=== PATIENT | male | born 1970 | race Hispanic/Latino ===

== ENCOUNTER 2023-06-30 07:47 | Observation (INO) | payer MEDICAID ==
[~2023-06-30] VITALS: Ht 167.6 cm; Wt 67.4 kg
[2023-06-30] MEDS ORDERED: LACTATED RINGERS 1000ML 1,000 ML IV ONE ×2 (08:30)
[2023-06-30 08:39] LABS: BASOPHILS # (AUTO) 0.04 K/uL (0.00-0.20); BASOPHILS % (AUTO) 0.5 % (0.0-5.0); EOSINOPHILS # (AUTO) 0.11 K/uL (0.00-0.70); EOSINOPHILS % (AUTO) 1.5 % (0.0-8.0); HEMATOCRIT 38.2 % (42-54); IMMATURE GRANULOCYTE ABSOLUTE 0.03 K/uL (0-1); LYMPHOCYTES # (AUTO) 0.8 K/uL (1.0-4.8); LYMPHOCYTES % (AUTO) 10.4 % (21.0-51.0); MEAN CORPUSCULAR HGB CONC 35.1 g/dL (32.0-36.0); MEAN CORPUSCULAR VOLUME 94.1 fL (79-99); MONOCYTES # (AUTO) 0.4 K/uL (0.1-1.0); MONOCYTES % (AUTO) 5.4 % (3.0-13.0); NEUTROPHILS # (AUTO) 6.2 K/uL (1.8-7.7); NEUTROPHILS % (AUTO) 81.8 % (40.0-77.0); PLATELET COUNT (AUTO) 204 K/uL (130-400); RED BLOOD CELL COUNT(AUTO) 4.06 MIL/uL (4.50-6.20); RED CELL DISTRIBUTION WIDTH 12.5 % (11.0-15.5); WHITE BLOOD COUNT (AUTO) 7.6 K/uL (4.8-10.8)
[2023-06-30 08:47] LABS: CARBON DIOXIDE 28 mmol/L (21-32); CHLORIDE 99 mmol/L (101-111); CREATININE 2.4 mg/dL (0.5-1.5); GLOMERULAR FILTR. RATE CALC 31 mL/min (>90); GLUCOSE,RANDOM 103 mg/dL (70-105); POTASSIUM 4.7 mmol/L (3.5-5.1); SODIUM SERUM 135 mmol/L (136-145); UREA NITROGEN, BLOOD 16 mg/dL (7-18)
[2023-06-30 08:54] LABS: ALANINE AMINOTRANSFERASE 17 U/L (12-78); ALBUMIN 3.5 g/dL (3.5-5.0); ALCOHOL, BLOOD < 3 mg/dL (0-10); ASPARTATE AMINOTRANSFERASE 31 U/L (10-37); BILIRUBIN,TOTAL 0.6 mg/dL (0.2-1.0); TOTAL PROTEIN, SERUM 7.8 g/dL (6.0-8.3)
[2023-06-30 09:15] LABS: INR 0.95 (0.85-1.15); PROTHROMBIN TIME 11.1 SEC (9.6-11.6)
[2023-06-30 09:16] LABS: PARTIAL THROMBOPLASTIN TIME 29.6 SEC (26.3-35.5)
[2023-06-30 10:58] LABS: AMPHET/METH SCREEN,URINE NEGATIVE (NEGATIVE); BARBITURATE SCREEN, URINE NEGATIVE (NEGATIVE); BENZODIAZEPINES SCREEN,URINE NEGATIVE (NEGATIVE); CANNABINOID SCREEN,URINE NEGATIVE (NEGATIVE); COCAINE SCREEN,URINE NEGATIVE (NEGATIVE); OPIATE SCREEN,URINE NEGATIVE (NEGATIVE); PHENCYCLIDINE SCREEN,URINE NEGATIVE (NEGATIVE)
[2023-06-30] MEDS ORDERED: LORAZEPAM 2 MG/ML 1 ML VIAL IVP PRN (13:00)
[2023-06-30] MEDS ORDERED: LEVETIRACETAM 250 MG TABLET PO SCH (21:00)
[2023-06-30] MEDS: LEVETIRACETAM 500 MG TABLET PO SCH (21:19)
[2023-06-30 22:05] VITALS: BP 158/94; PULSE 71; RESP 20
[2023-06-30] MEDS ORDERED: LOSA100T59 PO (22:24)
[2023-06-30] MEDS ORDERED: AMLO-258 PO (22:24)
[2023-06-30] MEDS ORDERED: LISI10TA24 PO (22:24)
[2023-06-30] MEDS ORDERED: CARV12.511 PO (22:24)
[2023-06-30] MEDS ORDERED: ATOR-2 PO (22:24)
[2023-06-30] MEDS ORDERED: ASPI-1443 PO (22:24)
[2023-06-30] MEDS ORDERED: LEVE750T10 PO (22:24)
[2023-06-30] MEDS ORDERED: HYDR25TA PO (22:24)
[2023-07-01] VITALS (7 sets, daily range): BP systolic 113–156; BP diastolic 66–84; PULSE 54–72; RESP 16–20; O2SAT 98
[2023-07-01 05:22] LABS: BASOPHILS # (AUTO) 0.05 K/uL (0.00-0.20); BASOPHILS % (AUTO) 0.9 % (0.0-5.0); EOSINOPHILS # (AUTO) 0.22 K/uL (0.00-0.70); EOSINOPHILS % (AUTO) 3.9 % (0.0-8.0); HEMATOCRIT 40.1 % (42-54); IMMATURE GRANULOCYTE ABSOLUTE 0.03 K/uL (0-1); LYMPHOCYTES # (AUTO) 1.4 K/uL (1.0-4.8); LYMPHOCYTES % (AUTO) 25.8 % (21.0-51.0); MEAN CORPUSCULAR HEMOGLOBIN 32.2 pg (27.0-33.0); MEAN CORPUSCULAR HGB CONC 34.4 g/dL (32.0-36.0); MEAN CORPUSCULAR VOLUME 93.5 fL (79-99); MONOCYTES # (AUTO) 0.5 K/uL (0.1-1.0); MONOCYTES % (AUTO) 9.7 % (3.0-13.0); NEUTROPHILS # (AUTO) 3.3 K/uL (1.8-7.7); NEUTROPHILS % (AUTO) 59.2 % (40.0-77.0); PLATELET COUNT (AUTO) 230 K/uL (130-400); RED BLOOD CELL COUNT(AUTO) 4.29 MIL/uL (4.50-6.20); RED CELL DISTRIBUTION WIDTH 12.5 % (11.0-15.5); WHITE BLOOD COUNT (AUTO) 5.6 K/uL (4.8-10.8)
[2023-07-01 05:44] LABS: ALBUMIN 3.4 g/dL (3.5-5.0); BILIRUBIN,TOTAL 0.7 mg/dL (0.2-1.0); CREATININE 1.9 mg/dL (0.5-1.5); MAGNESIUM 1.6 mg/dL (1.80-2.40); POTASSIUM 3.7 mmol/L (3.5-5.1); TOTAL PROTEIN, SERUM 7.7 g/dL (6.0-8.3)
[2023-07-01] MEDS: MAGNESIUM 2GM PREMIX 50ML 50 ML IV PRN (07:12)
[2023-07-01] MEDS: THIAMINE HCL 100 MG TABLET PO SCH (08:36)
[2023-07-01] MEDS: FOLIC ACID 1 MG TABLET PO SCH (08:36)
[2023-07-01] MEDS: LEVETIRACETAM 500 MG TABLET PO SCH ×2 (08:36→20:08)
[2023-07-01] MEDS ORDERED: LEVETIRACETAM 1,000 MG in 0.9%NACL 100ML 100 ML IV SCH (09:00)
[2023-07-02 03:00] VITALS: BP 142/76; PULSE 63; RESP 18
[2023-07-02 05:16] LABS: HEMATOCRIT 41.2 % (42-54); MEAN CORPUSCULAR HEMOGLOBIN 32.3 pg (27.0-33.0); MEAN CORPUSCULAR VOLUME 95.2 fL (79-99); RED BLOOD CELL COUNT(AUTO) 4.33 MIL/uL (4.50-6.20); RED CELL DISTRIBUTION WIDTH 12.4 % (11.0-15.5); WHITE BLOOD COUNT (AUTO) 5.9 K/uL (4.8-10.8)
[2023-07-02 05:29] LABS: CREATININE 1.8 mg/dL (0.5-1.5); MAGNESIUM 1.8 mg/dL (1.80-2.40); POTASSIUM 3.5 mmol/L (3.5-5.1)
[2023-07-02] MEDS: MAGNESIUM 2GM PREMIX 50ML 50 ML IV PRN (05:56)
[2023-07-02 07:20] VITALS: O2SAT 97
[2023-07-02 08:00] VITALS: BP 126/67; PULSE 61; RESP 18
[2023-07-02] MEDS: THIAMINE HCL 100 MG TABLET PO SCH (08:53)
[2023-07-02] MEDS: LEVETIRACETAM 500 MG TABLET PO SCH (08:53)
[2023-07-02] MEDS: FOLIC ACID 1 MG TABLET PO SCH (08:53)
[2023-07-02 11:00] VITALS: BP 156/86; PULSE 63; RESP 16
[2023-07-02 16:00] VITALS: BP 147/80; PULSE 62; RESP 16
== END 2023-07-02 18:00 | disposition home or self-care (01) ==
LOC: EDH 07:47 → EDHIP 07:48 → 3CH 21:22
PROVIDERS: ADMIT Internal Medicine Infectious Disease; ATTEND Internal Medicine Infectious Disease
DX: G40.911 Epilepsy, unspecified, intractable, with status epilepticus (principal); S00.83XA Contusion of other part of head, initial encounter; I12.9 Hypertensive chronic kidney disease with stage 1 through stage 4 chronic kidney disease, or unspecified chronic kidney disease; E11.22 Type 2 diabetes mellitus with diabetic chronic kidney disease; N18.9 Chronic kidney disease, unspecified; E78.00 Pure hypercholesterolemia, unspecified; F10.129 Alcohol abuse with intoxication, unspecified; M10.9 Gout, unspecified; E78.5 Hyperlipidemia, unspecified; M47.812 Spondylosis without myelopathy or radiculopathy, cervical region; X58.XXXA Exposure to other specified factors, initial encounter; Y93.89 Activity, other specified; Y92.89 Other specified places as the place of occurrence of the external cause; Z91.199 Patient's noncompliance with other medical treatment and regimen due to unspecified reason; Z86.73 Personal history of transient ischemic attack (TIA), and cerebral infarction without residual deficits; Z79.899 Other long term (current) drug therapy
CPT/HCPCS: 96361; 96365; 99285; 80053 ×2; 80305; 83690; 85025 ×2; 85610; 85730; 36415 ×3; 71045; 70450; 72125; 70486; 93005; 80177; 96375; 83735 ×2; 70551; 96376; 80048; 85027; G0378 ×52; J3475 ×2; J1953

== ENCOUNTER 2024-11-29 19:35 | Emergency (ER) | payer MEDICAID ==
[~2024-11-29 19:35] MED LIST: AMLO-257 PO; ATOR-2 PO; CARV12.511 PO; FAMO-290 PO; LEVE750T4 PO; LOSA100T59 PO; VITAMIN B1
[2024-11-29 19:41] VITALS: TEMP 98.2
--- NOTE | 2024-11-29 19:46 | NUR ---
PT TO CT SCAN.
--- NOTE | 2024-11-29 20:02 | HMCIMG ---
PORTABLE CHEST RADIOGRAPH INDICATION: FACIAL DROOP COMPARISON: None FINDINGS: Heart size is normal. The pulmonary vascularity and bahman appear normal. No abnormal pulmonary parenchymal opacity or consolidation identified. No significant pleural effusion noted. No pneumothorax detected. IMPRESSION: No radiographic evidence for any acute cardiopulmonary process.
--- NOTE | 2024-11-29 20:04 | HMCIMG ---
CT HEAD WITHOUT CONTRAST INDICATION: Stroke/TIA TECHNIQUE: Noncontrast axial helical CT images from the vertex through the skull base using 5 mm slice thickness without contrast material. Coronal and sagittal reconstructions were also included. Dose reduction techniques was used using integrated, automated and adaptive dose reduction exposure control. CT was performed with one or more of the following dose reduction techniques: Automated exposure control, adjustment of the mA and/or kV according to patient size, or use of iterative reconstruction technique. COMPARISON: None FINDINGS: Scattered and coalescent subcortical and periventricular white matter low attenuating areas likely represent residual of chronic small vessel arteriopathy and/or remote vascular insult. Chronic large posterior right frontal lobe infarct and resultant ex vacuo dilation of the right lateral ventricle. Generalized mild cerebral cortical atrophy is present.. No evidence for abnormal extra-axial fluid collections or masses. The ventricles and sulci are normal in size and configuration. No evidence for intracranial parenchymal, epidural, or subdural hemorrhage, mass effect or midline shift. The correa-white matter differentiation is well preserved. No secondary evidence to suggest acute ischemia. Mild calcific plaque is present along the ervin of the cavernous segments of both internal carotid arteries. The brainstem and cerebellum appear normal. The visualized orbits appear unremarkable. The visible paranasal sinuses and mastoid air cells are clear. The calvarium appears normal. IMPRESSION: Chronic white matter ischemic changes, mild brain atrophy, and arteriosclerotic disease as described, without acute component.
--- NOTE | 2024-11-29 20:07 | NUR ---
SEEN BY TELENEURO AT THIS TIME.
--- NOTE | 2024-11-29 20:25 | ERN ---
ED Note History of Present Illness Stated Complaint: FACIAL DROOP Chief Complaint: Stroke Symptoms Time Seen by MD: 20:03 Time Seen by Midlevel: 20:03 Dictation: 54-year-old male who presents to the emergency department per EMS for report of concern of possibly having another stroke. He states that he does have a history of a left-sided stroke from a couple years ago. Today, he reports having concern over having a tingling type of sensation to the left side of the face. Currently, he denies having any headache, nausea or vomiting associated with this. However, he believes that this might be also related to anxiety due to stating that he was watching the event of present caught her and started to feel anxious and then the symptoms began. The onset of the symptoms were at 9:00 a.m.. Upon initial evaluation, the patient presents in no acute distress. Allergies: Coded Allergies: No Known Allergies (Unverified Allergy, Unknown, 06/30/23) Home Meds Reported Medications Amlodipine Besylate (Amlodipine Besylate) 5 Mg Tablet, 1 TAB PO DAILY for blood pressure 09/08/24 Levetiracetam (Keppra) 750 Mg Tablet, 750 MG PO BID, TAB 06/05/24 Famotidine (Famotidine) 10 Mg Tablet, 10 MG PO BID, TAB 06/05/24 [Vitamin B1] No Conflict Check, 100 MG 06/05/24 Losartan Potassium (Losartan Potassium) 100 Mg Tablet, 1 TAB PO DAILY 06/30/23 Carvedilol (Carvedilol) 12.5 Mg Tablet, 1 TAB PO BID 06/30/23 Atorvastatin Calcium (Atorvastatin Calcium) 80 Mg Tablet, 1 TAB PO DAILY 06/30/23 Past Medical History Past Medical History: Anxiety, CVA, Diabetes-Type II, High Cholesterol, Hypertension, Seizure Surgical History: Unknown PSYCH History: anxiety Social History: Lives with family RN Note Reviewed/Agreed w/PFSH: Yes Review of System Dictation See HPI. Initial Vital Sign VS Vital Signs Date Time Temp Pulse Resp B/P (MAP) Pulse Ox O2 Delivery O2 Flow Rate FiO2 11/29/24 19:41 98.2 60 16 182/83 99 Room Air 0 11/29/24 20:28 21 Physical Exam Dictation General: awake, alert, NAD Head/Face: Normocephalic, atraumatic Eyes: PERRL, EOMI ENT: Oral mucosa moist Neck: Trachea midline, supple Cardiovascular: RRR, no edema Respiratory: Symmetrical, non-labored Abdomen: Soft, non-tender, non-distended, no guarding. Skin: Warm, dry, good turgor, no rash MS/Extremity: Pulses equal, no cyanosis, neurovascular intact, partial contracture of the left arm Neuro: COAx4, GCS 15, steady gait, Psych: Normal behavior, mood, and affect normal Results (Laboratory/Radiology) Laboratory/Radiology Laboratory Tests Test 11/29/24 19:42 11/29/24 20:24 Whole Blood Glucose 96 MG/DL (70-110) White Blood Count 7.1 K/uL (4.8-10.8) Red Blood Count 4.90 MIL/uL (4.50-6.20) Hemoglobin 15.4 g/dL (14.0-18.0) Hematocrit 44.4 % (42-54) Mean Corpuscular Volume 90.6 fL (79-99) Mean Corpuscular Hemoglobin 31.4 pg (27.0-33.0) Mean Corpuscular Hemoglobin Concent 34.7 g/dL (32.0-36.0) Red Cell Distribution Width 13.3 % (11.0-15.5) Platelet Count 202 K/uL (130-400) Mean Platelet Volume 10.2 fL (7.5-10.5) Immature Granulocyte % (Auto) 0.3 % (0-1) Neutrophils (%) (Auto) 64.6 % (40.0-77.0) Lymphocytes (%) (Auto) 20.6 % (21.0-51.0) L Monocytes (%) (Auto) 9.4 % (3.0-13.0) Eosinophils (%) (Auto) 4.8 % (0.0-8.0) Basophils (%) (Auto) 0.3 % (0.0-5.0) Neutrophils # (Auto) 4.6 K/uL (1.8-7.7) Lymphocytes # (Auto) 1.5 K/uL (1.0-4.8) Monocytes # (Auto) 0.7 K/uL (0.1-1.0) Eosinophils # (Auto) 0.34 K/uL (0.00-0.70) Basophils # (Auto) 0.02 K/uL (0.00-0.20) Absolute Immature Granulocyte (auto 0.02 K/uL (0-1) Nucleated Red Blood Cells 0.0 % (0.0-0.19) Prothrombin Time 11.0 SEC (9.6-11.6) Prothromb Time International Ratio 0.98 (0.85-1.15) Activated Partial Thromboplast Time 31.4 SEC (26.3-35.5) Sodium Level 134 mmol/L (136-145) L Potassium Level 4.4 mmol/L (3.5-5.1) Chloride Level 97 mmol/L (101-111) L Carbon Dioxide Level 30 mmol/L (21-32) Blood Urea Nitrogen 7 mg/dL (7-18) Creatinine 1.4 mg/dL (0.5-1.3) H Glomerular Filtration Rate Calc 59 mL/min (>90) Random Glucose 91 mg/dL (70-105) Total Calcium 8.8 mg/dL (8.5-10.1) Total Creatine Kinase 101 U/L (21-232) # Troponin I High Sensitivity 6 ng/L (4-75) B-Type Natriuretic Peptide 154 pg/mL (0-100) H LDL Cholesterol 43 mg/dL (0-99) Labs Reviewed?: Yes EKG Comment: EKG done 11/29/2024 at 7:42 p.m. CO 144 MS QRS 103 MS QT 436 MS No STEMI. X-RAY Comment: Chest x-ray one view with no infiltrates as interpreted by me. CT Scan Comment: CT of the head without contrast with no acute process as interpreted by radiologist. ED Course ED Course Orders Procedure Category Date Status Time Vital Signs Per CPOE 11/29/24 Transmitted Routine 19:50 Cardiac Monitoring CPOE 11/29/24 Transmitted 19:50 Bedside Glucose CPOE 11/29/24 Transmitted Fingerstick 19:50 Oxygen By Nc/Pulse Ox CPOE 11/29/24 Transmitted 19:50 Saline Lock Iv CPOE 11/29/24 Transmitted 19:50 Nothing By Mouth DIET 11/30/24 Transmitted Breakfast Bedside Swallow Eval ST 11/29/24 Transmitted 19:50 Cbc With Differential LAB 11/29/24 Complete 19:50 Partial LAB 11/29/24 Complete Thromboplastin Time 19:50 Prothrombin Time With LAB 11/29/24 Complete INR 19:50 Ct Head/Brain W/O CT 11/29/24 Resulted Contrast 19:50 12 Lead Ekg Tracing- EKG 11/29/24 Logged Technical 19:50 Neurology Consult CONPHYSVC 11/29/24 Transmitted 19:50 Pulse Ox(Continuous) RT 11/29/24 Transmitted 19:50 Npo W/Aspiration CPOE 11/29/24 Transmitted Precautions 19:50 Complete Nih Stroke CPOE 11/29/24 Transmitted Scale 19:50 Creatine Kinase, Total LAB 11/29/24 Complete 19:50 Troponin I High LAB 11/29/24 Complete Sensitivity 19:50 B-Type Natriuretic LAB 11/29/24 Complete Peptide 19:50 Ldl Direct LAB 11/29/24 Complete 19:50 Urinalysis Profile LAB 11/29/24 Logged 19:50 Chest 1vw RAD 11/29/24 Resulted 19:50 Nihss Every Shift And CPOE 11/29/24 Transmitted PRN 19:50 Neurological Vs Q4hrs BRYN 11/29/24 Transmitted 19:50 Basic Metabolic Panel LAB 11/29/24 Complete 19:50 Vital Signs Date Time Temp Pulse Resp B/P (MAP) Pulse Ox O2 Delivery O2 Flow Rate FiO2 11/29/24 21:59 54 18 154/62 98 Room Air* 0 21 11/29/24 20:28 58 18 159/59 98 Room Air* 0 21 11/29/24 19:41 98.2 60 16 182/83 99 Room Air 0 Medical Decision Making MDM MDM: Differential diagnosis: CVA, TIA, anxiety. Rationale: Tests considered and ordered secondary to shared decision making include: Previous outside records reviewed: Old ER visits. Risk of complication and/or morbidity or mortality of patient management: None Medications-Per medication reconciliation Need for hospitalization: Patient does not meet criteria for hospitalization. Need for emergency major/minor surgery: No There are no social concerns with this patient. Prescription drug management Prescriptions will include symptomatic care Patient's prior external medical records from other ER visits were reviewed by me as indicated. Prior testing and results from previous visits were reviewed. Prior tests were taken into account with medical decision making and resource utilization, independent historian/historians were used to obtain complete medical history. I independently interpreted the test that were performed, results were reviewed by me and considered findings on radiology if ordered. Medical management and examination interpretation discussions were had by me with other qualified healthcare professionals as indicated for the patient's care. Patient evaluated per tele neurology with no concerns for any acute stroke. NIH STROKE SCALE: NIH STROKE SCALE Response (Comments) Value Level of Consciousness Alert 0 Ask patient month and their age Answers both correct 0 Command to open eyes, make fist and let go Obeys both correct 0 Best gaze (horizontal eye movement) Normal 0 Visual Field Testing No Visual Field Loss 0 Facial Paresis Normal / Symmetrical 0 Motor Function - Left Arm Drift 1 Motor Function - Right Arm Normal 0 Motor Function - Left Leg Normal 0 Motor Function - Right Leg Normal 0 Limb Ataxia No Ataxia 0 Sensory-pin prick to arms, legs, trunk and face Normal 0 Best Language (describe picture, name items and read) Mild to Mod. Aphasia 1 Dysarthria (read several words) Normal Articulation 0 Extinction and Inattention Normal 0 Total 2 DX & DISP Disposition: Discharge Departure Impression: Primary Impression: Paresthesia Additional Impressions: Anxiety, History of CVA (cerebrovascular accident) Condition: Stable Referrals: MARY JANE BORJA MD (PCP) Time of Disposition: 22:01 MARY JANE REICH Nov 29, 2024 20:25
[2024-11-29 20:34] LABS: BASOPHILS # (AUTO) 0.02 K/uL (0.00-0.20); BASOPHILS % (AUTO) 0.3 % (0.0-5.0); EOSINOPHILS # (AUTO) 0.34 K/uL (0.00-0.70); EOSINOPHILS % (AUTO) 4.8 % (0.0-8.0); HEMATOCRIT 44.4 % (42-54); IMMATURE GRANULOCYTE ABSOLUTE 0.02 K/uL (0-1); LYMPHOCYTES # (AUTO) 1.5 K/uL (1.0-4.8); LYMPHOCYTES % (AUTO) 20.6 % (21.0-51.0); MEAN CORPUSCULAR HEMOGLOBIN 31.4 pg (27.0-33.0); MEAN CORPUSCULAR HGB CONC 34.7 g/dL (32.0-36.0); MEAN CORPUSCULAR VOLUME 90.6 fL (79-99); MONOCYTES # (AUTO) 0.7 K/uL (0.1-1.0); MONOCYTES % (AUTO) 9.4 % (3.0-13.0); NEUTROPHILS # (AUTO) 4.6 K/uL (1.8-7.7); NEUTROPHILS % (AUTO) 64.6 % (40.0-77.0); PLATELET COUNT (AUTO) 202 K/uL (130-400); RED CELL DISTRIBUTION WIDTH 13.3 % (11.0-15.5); WHITE BLOOD COUNT (AUTO) 7.1 K/uL (4.8-10.8)
[2024-11-29 20:46] LABS: CREATININE 1.4 mg/dL (0.5-1.3); POTASSIUM 4.4 mmol/L (3.5-5.1)
[2024-11-29 20:47] LABS: INR 0.98 (0.85-1.15)
[2024-11-29 20:48] LABS: PARTIAL THROMBOPLASTIN TIME 31.4 SEC (26.3-35.5)
[2024-11-29 20:57] LABS: B-TYPE NATRIURETIC PEPTIDE 154 pg/mL (0-100)
[2024-11-29 21:59] VITALS: BP 154/62; PULSE 54; RESP 18; O2SAT 98
--- NOTE | 2024-11-29 22:23 | NUR ---
TRYING TO FIND A RIDE, WAITING IN ROOM.
--- NOTE | 2024-11-29 23:18 | NUR ---
PATIENT STILL CALLING FOR RIDES.
--- NOTE | 2024-11-29 23:30 | NUR ---
CALLED HEMALATHA MAYO AND SHE IS ALSO TRYING TO GET HIM A RIDE BUT NO RIDES AT THIS TIME. SHE IS POST OP AND CAN NOT DRIVE.
--- NOTE | 2024-11-30 00:03 | NUR ---
ARRANGING FOR POSSIBLE UBER TO GET TO PATIENT'S MOTHER'S HOUSE.
--- NOTE | 2024-11-30 00:44 | NUR ---
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
--- NOTE | 2024-11-30 05:10 | EKG ---
[facility] Test Date: 2024-11-29 Test Time: 19:42:10 Pat Name: HARMONY FAM Department: ED Room: Gender: Barrel Cutter: [birth year] : 1970 Requested By: KATHRINE BROWN Order Number: [id number] Reading MD: Estelle Flores Measurements Intervals [place]ard Rate: 54 P: 39 CO: 164 QRS: 35 QRSD: 103 T: 84 QT: 436 QTc: 415 Interpretive Statements Sinus rhythm Compared to ECG 09/11/2024 09:12:03 No significant changes Electronically Signed On 11-30-2024 08:08:04 DANCE DIRECTOR by Estelle Flores Please click the below link to view image of tracing.
== END 2024-11-29 22:19 | disposition home or self-care (01) ==
LOC: EDH 19:35
DX: R20.2 Paresthesia of skin (principal); F41.9 Anxiety disorder, unspecified; E11.9 Type 2 diabetes mellitus without complications; E78.00 Pure hypercholesterolemia, unspecified; R79.1 Abnormal coagulation profile; I10 Essential (primary) hypertension; Z79.899 Other long term (current) drug therapy; Z86.73 Personal history of transient ischemic attack (TIA), and cerebral infarction without residual deficits
CPT/HCPCS: 36415; 70450; 71045; 80048; 82550; 82948; 83721; 83880; 84484; 85025; 85610; 85730; 93005; 99285